=== PATIENT | female | born 1935 | race Caucasian/White ===

== ENCOUNTER → 2019-03-01 | Outpatient (CLI) | payer MEDICARE ==
--- NOTE | 2019-03-12 10:49 | MM ---
Reason for exam: screening (asymptomatic). Last mammogram was performed 3 years and 2 months ago. History: Patient is postmenopausal. Physical Findings: Nurse did not find any significant physical abnormalities on exam. MG 3D Screening Mammo W/Cad Bilateral CC and MLO view(s) were taken. Prior study comparison: January 06, 2016, mammogram, performed at [facility]. September 28, 2015, mammogram, performed at [facility]. The breast tissue is heterogeneously dense. This may lower the sensitivity of mammography. There is stable right middle depth lower inner quadrant group of 2mm calcifications back to 2014. Benign appearing left calcifications are also seen. No suspicious abnormality. No significant changes when compared with prior studies. ASSESSMENT: Benign, BI-RAD 2 RECOMMENDATION: Routine screening mammogram of both breasts in 1 year.
== END | disposition home or self-care (01) ==
LOC: RADMAMWWP 13:17
PROVIDERS: ATTEND Internal Medicine
DX: Z12.31 Encounter for screening mammogram for malignant neoplasm of breast (principal)
CPT/HCPCS: 77063; 77067

== ENCOUNTER → 2021-01-09 | Outpatient (CLI) | payer MEDICARE, OTHER ==
[2021-01-09 14:07] LABS: C Reactive Protein <5.0 mg/L (<10.0)
[2021-01-09 20:38] LABS: Anti-Smith Ab Interp NEGATIVE (NEGATIVE)
[2021-01-09 23:39] LABS: Protein, Total 7.6 g/dL (6.2-8.2)
[2021-01-09 23:52] LABS: Rheumatoid Factor, Qnt <4 IU/mL (0-15)
[2021-01-10 14:46] LABS: C-ANCA <1:20 Titer (<1:20)
[2021-01-12 15:31] LABS: Albumin 4.49 g/dL (3.80-4.90); Gamma Globulin 1.16 g/dL (0.70-1.50)
== END | disposition home or self-care (01) ==
LOC: LABWHC1 13:33
PROVIDERS: ATTEND Psychiatry & Neurology Neurology
DX: G62.9 Polyneuropathy, unspecified (principal)
CPT/HCPCS: 36415; 82306; 82607; 84165; 85652; 86038; 86140; 86235; 86255; 86431

== ENCOUNTER → 2021-01-29 | Outpatient (CLI) | payer MEDICARE, OTHER ==
--- NOTE | 2021-01-31 09:56 | P.ARTDOP ---
Arterial Doppler Upper extremity arterial Doppler: Date of study: 01/29/2021 Reason for study: Finger numbness Findings: Doppler waveforms are multiphasic bilaterally throughout. There are no significant right to left or segmental pressure gradients. Impression: Normal study.
== END | disposition home or self-care (01) ==
LOC: RADUSWWP 13:36
PROVIDERS: ATTEND Psychiatry & Neurology Neurology
DX: G62.9 Polyneuropathy, unspecified (principal); M79.642 Pain in left hand
CPT/HCPCS: 93923

== ENCOUNTER → 2021-02-21 | Outpatient (CLI) | payer MEDICARE, OTHER ==
[2021-02-21 23:21] LABS: Chol/HDL Ratio 3.56; LDL Cholesterol,Calculated 151.6 mg/dL (0.0-131.0); VLDL Calculation 22.4 mg/dL (5.00-40.00)
== END | disposition home or self-care (01) ==
LOC: LABWHC1 12:13
PROVIDERS: ATTEND Internal Medicine
DX: E78.5 Hyperlipidemia, unspecified (principal)
CPT/HCPCS: 36415; 80061; 84450; 84460; 85652

== ENCOUNTER → 2021-06-21 | Outpatient (CLI) | payer MEDICARE, OTHER ==
--- NOTE | 2021-06-27 10:12 | P.ARTDOP ---
Arterial Doppler LOWER EXTREMITY ARTERIAL DOPPLER: DATE OF SERVICE: 06/21/2021 Reason for study: : Legs. Doppler waveforms: Multiphasic bilaterally throughout. Pulse volume recording: []. Pressure gradients: None. Ankle-brachial indices: 0.96 on the right and 0.94 on the left. Toe brachial indices: 0.61 on the right, 0.63 on the left Impression: Normal study.
== END | disposition home or self-care (01) ==
LOC: RADUSWWP 14:06
PROVIDERS: ATTEND Psychiatry & Neurology Neurology
DX: R20.9 Unspecified disturbances of skin sensation (principal)
CPT/HCPCS: 93922